=== PATIENT | female | born 1965 | race Caucasian/White ===

== ENCOUNTER 2020-08-30 14:28 | Emergency (ER) | payer OTHER ==
[~2020-08-30] VITALS: Ht 172.7 cm; Wt 99.8 kg
[2020-08-30] MEDS ORDERED: PRAVASTATIN SOD20 MG PO (14:42)
[2020-08-30] MEDS ORDERED: ATENOLOL 25 MG25 M1 PO (14:43)
[2020-08-30] MEDS ORDERED: MEDROLDOSEPACK PO ×2 (15:44→17:05)
[2020-08-30] MEDS ORDERED: HYDROCODON-ACE1 EAC7 PO (17:02)
[2020-08-30 17:15] VITALS: BP 135/72
== END 2020-08-30 17:16 | disposition home or self-care (01) ==
LOC: M.ERS 14:28
DX: M54.16 Radiculopathy, lumbar region (principal); I10 Essential (primary) hypertension; E78.5 Hyperlipidemia, unspecified